=== PATIENT | female | born 1990 | race Caucasian/White ===

== ENCOUNTER → 2017-10-20 19:02 | Outpatient (CLI) | payer BC, SELFPAY ==
[2017-10-20 23:14] LABS: Chlamydia Trachomatis by PCR Negative (Negative); Neisserai gonorrhoeae by PCR Negative (Negative); Probe Check PASS; Sample Adequacy Control PASS; Specimen Processing Control PASS
[2017-10-26 11:48] LABS: HPV Reflexed? NOT INDICATED
== END ==
PROVIDERS: Visit Provider Obstetrics & Gynecology
DX: Z12.4 Encounter for screening for malignant neoplasm of cervix (principal); Z11.3 Encounter for screening for infections with a predominantly sexual mode of transmission
CPT/HCPCS: 87491; 87591; 88175; G0145

== ENCOUNTER → 2017-11-07 16:15 | Outpatient (CLI) | payer BC, SELFPAY ==
[2017-11-07 17:51] LABS: Color, Urine Yellow (Yellow); Glucose, Dipstick Normal (Normal); Ketone-Dipstick Negative (Negative); Leukocyte Esterase-Dipstick 500 /ul (Negative); Nitrite-Dipstick Negative (Negative); Occult Blood-Urine Negative /ul (Negative); Protein-Dipstick Negative (Negative); Specific Gravity, Urine 1.015 (1.002-1.030); Urine Bilirubin Dipstick Negative (Negative); Urine Clarity Clear (Clear); Urine Urobilinogen Normal (Normal)
[2017-11-07 18:06] LABS: Thyroid Stim Hormone (TSH) 1.51 uIU/mL (0.358-3.74)
[2017-11-07 18:07] LABS: Amphetamine Urine VISTA NEGATIVE (<1000 ng/mL); Barbiturate Urine VISTA NEGATIVE (< 200 ng/mL); Benzodiazepine Urine VISTA NEGATIVE (< 200 ng/mL); Cocaine Urine VISTA NEGATIVE (< 300 ng/mL); Ecstacy Urine VISTA NEGATIVE (< 500 ng/mL); Methadone Urine VISTA NEGATIVE (< 300 ng/mL); PCP Urine VISTA NEGATIVE (< 25 ng/mL); THC Urine VISTA NEGATIVE (< 50 ng/mL); Vista UDS pH Range 6
[2017-11-07 18:09] LABS: COTININE Drug Screen Negative (<200 ng/mL)
[2017-11-07 18:49] LABS: HIV - WCH Non-Reactive (Nonreactive); Rubella IgG 9.1 IU/mL
[2017-11-07 19:12] LABS: Absolute Lymphocyte Count 2.41 X10^3/ul (0.83-4.51); Absolute Neutrophil Count 10.4 X10^3/uL (2.0-7.7); Basophil# 0.01 X10^3/uL; Basophil% 0.1 % (0-1); Eosinophil# 0.08 X10^3/uL; Eosinophils% 0.6 % (0-5); Hematocrit 42.8 % (37-47); Lymphocyte # 2.41 X10^3/ul (4.0); Lymphocyte % 17.3 % (19-41); Mean Corp Hgb Conc 32.7 g/gl (32-36); Mean Corpuscular Volume 94.9 fL (81-99); Mean Platelet Vol. 10.1 fl (6.2-12.0); Monocyte# 1.02 X10^3/uL; Monocyte% 7.3 % (0-10); Neutrophil # 10.35 X10^3/uL (2.7-7.7); Neutrophil % 74.5 % (47-70); Platelet Count 297 K/mm3 (150-450); RBC Distribution Width CV 12.3 % (11.6-14.6); Red Blood Count 4.51 M/mm3 (4.2-5.4); White Blood Count 13.9 K/mm3 (4.4-11.0)
[2017-11-07 19:22] LABS: POSITIVE COUNT NO; POSITIVE DIFFERENTIAL NO; POSITIVE MORPHOLOGY NO
[2017-11-09 11:15] LABS: HEPATITIS B SURFACE AG Negative (Negative); Hep C Antibodies 0.1 s/co ratio (0.0-0.9)
[2017-11-11 03:45] LABS: Prenatal RPR NONREACTIVE (NONREACTIVE)
[2018-05-15 20:19] LABS: Group B Strep DNA By PCR Negative (Negative); Internal Control PASS; Probe Check PASS; Specimen Processing Control PASS
== END ==
PROVIDERS: Visit Provider Obstetrics & Gynecology
DX: Z34.81 Encounter for supervision of other normal pregnancy, first trimester (principal)
CPT/HCPCS: 36415; 80307; 81002; 84443; 85025; 86703; 86762; 86803; 86870; 86900; 86901; 87081; 87340; 87653

== ENCOUNTER → 2017-11-15 14:32 | Outpatient (CLI) | payer BC, SELFPAY | PROVIDERS: Visit Provider Obstetrics & Gynecology | DX: N39.0 Urinary tract infection, site not specified (principal) | CPT/HCPCS: 87086; 87088 ==

== ENCOUNTER → 2018-03-13 16:35 | Outpatient (CLI) | payer BC, SELFPAY ==
[2018-03-13 17:38] LABS: Hematocrit 37.4 % (37-47); Hemoglobin 12.2 g/dl (12.0-15.0); Mean Corp Hgb Conc 32.6 g/gl (32-36); Mean Corpuscular Hgb 31.8 pg (27.0-32.0); Mean Corpuscular Volume 97.4 fL (81-99); Mean Platelet Vol. 9.6 fl (6.2-12.0); Platelet Count 249 K/mm3 (150-450); RBC Distribution Width CV 12.8 % (11.6-14.6); Red Blood Count 3.84 M/mm3 (4.2-5.4); White Blood Count 14.5 K/mm3 (4.4-11.0)
[2018-03-13 17:44] LABS: Glucose Challenge Gest 1H 50g 107 mg/dL (70-140); Scan Indicated on CBC? Y/N NO
== END ==
PROVIDERS: Visit Provider Obstetrics & Gynecology
DX: Z34.83 Encounter for supervision of other normal pregnancy, third trimester (principal)
CPT/HCPCS: 36415; 82950; 85027; 86777; 86778

== ENCOUNTER → 2018-04-10 16:38 | Outpatient (CLI) | payer BC, SELFPAY | PROVIDERS: Visit Provider Obstetrics & Gynecology | DX: N39.0 Urinary tract infection, site not specified (principal) | CPT/HCPCS: 87086; 87088 ==

== ENCOUNTER → 2018-05-08 18:02 | Outpatient (CLI) | payer BC, SELFPAY ==
[2018-05-08 20:30] LABS: Group B Strep DNA By PCR Negative (Negative); Internal Control PASS; Probe Check PASS; Specimen Processing Control PASS
== END ==
PROVIDERS: Referring Provider Obstetrics & Gynecology; Visit Provider Obstetrics & Gynecology
DX: Z36.85 Encounter for antenatal screening for Streptococcus B (principal)
CPT/HCPCS: 87081; 87653

== ENCOUNTER → 2018-05-15 16:40 | Outpatient (CLI) | payer BC, SELFPAY | PROVIDERS: Visit Provider Obstetrics & Gynecology | DX: Z36.85 Encounter for antenatal screening for Streptococcus B (principal) ==

== ENCOUNTER 2018-06-04 08:00 | Inpatient (IN) | payer BC, SELFPAY ==
[2018-06-04] MEDS: Lactated Ringers 1,000 ML 50 ML IV ×4 (08:15→16:41)
[2018-06-04 08:19] VITALS: BMI 35.4
[2018-06-04 08:45] LABS: Hematocrit 37.1 % (37-47); Hemoglobin 12.1 g/dl (12.0-15.0); Mean Corp Hgb Conc 32.6 g/gl (32-36); Mean Corpuscular Hgb 31.8 pg (27.0-32.0); Mean Corpuscular Volume 97.4 fL (81-99); Mean Platelet Vol. 9.5 fl (6.2-12.0); Platelet Count 239 K/mm3 (150-450); RBC Distribution Width CV 13.4 % (11.6-14.6); RBC Distribution Width SD 45.4 fl (35.1-43.9); Red Blood Count 3.81 M/mm3 (4.2-5.4); White Blood Count 11.9 K/mm3 (4.4-11.0)
[2018-06-04 08:47] LABS: Scan Indicated on CBC? Y/N NO
[2018-06-04] MEDS: fentaNYL-bupivacaine (epidural) 100 ML BAG EPIDURAL ×2 (09:36→14:11)
--- NOTE | 2018-06-04 10:36 | PCM.PN.BLA ---
Progress Note 39 2/7 wk Labor Comfortable after epidural placement. AVSS No pitocin at this point UCs q 5-6 min for most EFM 120-130s avg variability accels. Periods of intermittent tracing CX: /-3 vtx applied to cervix. AROM clear. to pink IUPC and scalp lead placed. A/P: 39 2/7 wk EGA. early labor. IUPC and scalp lead placed. Suspect UCs inadequate. no change since admission in cervix and vtx remains high. Pitocin per protocol to adequate mVUs.
[2018-06-04] MEDS: Oxytocin 30 units/NS 500 ml 30 UNITS/500 ML IV.SOLN IV (11:33)
--- NOTE | 2018-06-04 13:22 | PCM.PN.BLA ---
Progress Note LABOR PROGRESS NOTE Comfortable w/ epidural. Family in visiting. AVSS Pitocin at 6 mIU/min IFM: 120-130s avg variability. Accels Occasional variable with return to baseline Occasional early deceleration UCs coupling and spacing noted. CX Vtx very high/ 6 (maybe 6-7) 80 A/P: 39 2/7 wk EGA labor. AROM and IUPC placed. Pitocin augmentation. Advised will continue position changes and continue Pitocin per protocol. Suspect CPD, but will continue labor for now.
--- NOTE | 2018-06-04 17:34 | PCM.PN.BLA ---
Progress Note LABOR PROGRESS NOTE Sitting up in high kuo's position. NAD comfortable w/ epidural AVSS Pitocin at 2 mIU/min IFM overall reassuring. 120s with good scalp stim. Decel lasting 5 min today with intermittent accel/scalp stim. Avg variability. Deep variables off and on, positional. Some earlies UCs q 3-4 at present CX: 9/100 / 0 per RN check. A/P: 39 2/7 wk progress to 9 cm noted. Position changes to facilitate descent Continue labor
[2018-06-04] MEDS: Oxytocin 30 units/NS 500 ml 30 UNITS/500 ML IV.SOLN 334 UNITS IV (19:08)
--- NOTE | 2018-06-04 19:28 | PCM.OB.VAG ---
Vaginal Delivery Maternal Presentation: Active Labor 39 2/7 wk labor. Amniotic Membrane Rupture Type: Artificial Amniotic Fluid Description: Clear - mec staining noted then with progression of labor. Final URIEL: 06/09/18 Final URIEL Source: [place] <20 weeks Gestational age: 39 Weeks and 2 Days Date of Procedure: 06/04/18 Pre-Operative Diagnosis: 39 2/7 wk Post-Operative Diagnosis: same Surgery/ Procedure Performed: Spontaneous Vaginal Delivery Anesthesiologist: Norma Ledezma Type of Anesthesia: Epidural Description of Procedure: of a prasad viable female over intact perineum to lacerations. head delivered JOHN. Nuchal cord x one reduced. shoulders delivered easily. baby initially with good grimace and tone. Bulb suctioned and then limp. Cord clamped x two and cut and to be handed to customer service specialist, Dr Lira, present for delivery. Baby then crying vigorously as nurse took baby. Infant to maternal abdomen for drying. End stage mec noted. Routine ABG and VBG collected. PP exam; 1st deg anterior perineal laceration on L side, hemostatic. posterior vaginal laceration, 2nd deg, repaired to hemostatic and intact with 3-0 Vicryl. No other lacerations noted. Placenta delivered by spont expulsion, expression 3V cord normal appearing, thin cord. Intact with trailing membranes EBL 350 cc pt and tolerated delivery well. to recovery , stable condition. Ray Lopez counts correct x two Presentation: Vertex, JOHN Placental Delivery Description: Spontaneous, Expressed Placenta Disposition: [facility] Cord Vessel Description: 3 Vessels Nuchal Cord Compression: Without compression Cord Entanglement: Around neck x 1, loose Estimated Blood Loss: 350 Infant A gender: Female (1 minute): 8 (5 minute): 9 Episiotomy Description: None Laceration: Midline, Vaginal Extension/lac, 2nd degree - and L anterior labial laceration (hemostatic) 2nd deg repaired. Medications given after delivery: IV Pitocin Complications: None
--- NOTE | 2018-06-04 19:33 | OP.PCM_ITS ---
Vaginal Delivery Maternal Presentation: Active Labor 39 2/7 wk labor. Amniotic Membrane Rupture Type: Artificial Amniotic Fluid Description: Clear - mec staining noted then with progression of labor. Final URIEL: 06/09/18 Final UREIL Source: US <20 weeks Gestational age: 39 Weeks and 2 Days Date of Procedure: 06/04/18 Pre-Operative Diagnosis: 39 2/7 wk Post-Operative Diagnosis: same Surgery/ Procedure Performed: Spontaneous Vaginal Delivery Anesthesiologist: Norma Ledezma Type of Anesthesia: Epidural Description of Procedure: of a prasad viable female over intact perineum to lacerations. head delivered JOHN. Nuchal cord x one reduced. shoulders delivered easily. baby initially with good grimace and tone. Bulb suctioned and then limp. Cord clamped x two and cut and to be handed to plug making operator, Dr Lira, present for delivery. Baby then crying vigorously as nurse took baby. Infant to maternal abdomen for drying. End stage mec noted. Routine ABG and VBG collected. PP exam; 1st deg anterior perineal laceration on L side, hemostatic. posterior vaginal laceration, 2nd deg, repaired to hemostatic and intact with 3- 0 Vicryl. No other lacerations noted. Placenta delivered by spont expulsion, expression 3V cord normal appearing, thin cord. Intact with trailing membranes EBL 350 cc pt and tolerated delivery well. to recovery , stable condition. Ray Lopez counts correct x two Presentation: Vertex, JOHN Placental Delivery Description: Spontaneous, Expressed Placenta Disposition: [facility] Cord Vessel Description: 3 Vessels Nuchal Cord Compression: Without compression Cord Entanglement: Around neck x 1, loose Estimated Blood Loss: 350 A gender: Female (1 minute): 8 (5 minute): 9 Episiotomy Description: None Laceration: Midline, Vaginal Extension/lac, 2nd degree - and L anterior labial laceration (hemostatic) 2nd deg repaired. Medications given after delivery: IV Pitocin Complications: None
--- NOTE | 2018-06-04 19:37 | PCM.DCVAG ---
Discharge Diet: No Restrictions Discharge Activity: May Shower, May Take a Tub Bath May resume sexual activity in: 4-6 weeks Additional Activity Instructions:: Nothing in the vagina for 4-6 weeks. You may return to work/school in 6 weeks. Additional Instructions: If you experience any of the following, contact your healthcare provider. Bleeding that soaks a pad every hour for 2 hours Fever 100.4 or higher Unrelieved abdominal pain Problems urinating (including inability to urinate or burning while urinating). Visual changes Severe headache Flu-like symptoms Pain or redness in one of both of your breasts Pain, warmth, tenderness or swelling in your legs, especially the calf area Frequent nausea and vomiting Symptoms of depression or anxiety If you experience any of the following, call 911 or go to the nearest Emergency Room. Chest pain Problems breathing Seizure activity Partial or complete paralysis of a body part, slurred speech, weakness or drooping of the face, or a sudden inability to walk or hold your balance Allergies/Adverse Reactions: Allergies No Known Allergies Allergy (Verified 06/04/18 08:19) Medications to take at Discharge Vits [Prenatabs FA] 1 tablet PO DAILY 06/04/18 Please Follow Up With: Denise Israel MD - [phone] When: Call to make an appointment with your doctor in 6 weeks. Test Results: Test results from this visit will be discussed in further detail at your follow-up appointment, if applicable. Proposed Discharge Date: 06/06/18
[2018-06-04] MEDS: Oxytocin 30 units/NS 500 ml 30 UNITS/500 ML IV.SOLN 167 UNITS IV (19:38)
--- NOTE | 2018-06-04 19:38 | DCINST_ITS ---
Discharge Diet: No Restrictions Discharge Activity: May Shower, May Take a Tub Bath May resume sexual activity in: 4-6 weeks Additional Activity Instructions:: Nothing in the vagina for 4-6 weeks. You may return to work/school in 6 weeks. Additional Instructions: If you experience any of the following, contact your healthcare provider. * Bleeding that soaks a pad every hour for 2 hours * Fever 100.4 or higher * Unrelieved abdominal pain * Problems urinating (including inability to urinate or burning while urinating). * Visual changes * Severe headache * Flu-like symptoms * Pain or redness in one of both of your breasts * Pain, warmth, tenderness or swelling in your legs, especially the calf area * Frequent nausea and vomiting * Symptoms of depression or anxiety If you experience any of the following, call 911 or go to the nearest Emergency Room. * Chest pain * Problems breathing * Seizure activity * Partial or complete paralysis of a body part, slurred speech, weakness or drooping of the face, or a sudden inability to walk or hold your balance Allergies/Adverse Reactions: Allergies No Known Allergies Allergy (Verified 06/04/18 08:19) Medications to take at Discharge Vits [Prenatabs FA] 1 tablet PO DAILY 06/04/18 Please Follow Up With: Denise Israel MD - [phone] When: Call to make an appointment with your doctor in 6 weeks. Test Results: Test results from this visit will be discussed in further detail at your follow- up appointment, if applicable. Proposed Discharge Date: 06/06/18
[2018-06-05] VITALS: BP 96/59; PULSE 68; RESP 18; TEMP 36.3
[2018-06-05] MEDS: Naproxen 250 MG Tablet PO ×2 (00:49→09:13)
[2018-06-05] MEDS: Acetaminophen 500 MG Tablet 1000 MG PO (03:45)
[2018-06-05 03:50] VITALS: BP 91/51; PULSE 70; RESP 16; TEMP 36.2; O2SAT 98
--- NOTE | 2018-06-05 07:39 | PCM.PN.OB ---
Subjective: PPD#1 Doing well. No concerns voiced, but trying to nurse. Has been spoon feeding also. Minimal pain. Pain med prn. - Physical Exam General: Alert, Oriented x3, Cooperative, No apparent distress HEENT: Atraumatic Neck: Supple Abdomen: Soft - Fundus firm NT at umbilicus Neurological: Cranial nerves II-XII grossly intact Psych/Mental Status: Normal Affect Vital Signs Temp Pulse Resp BP Pulse Ox 97.2 F L 70 16 91/51 L 98 06/05/18 03:50 06/05/18 03:50 06/05/18 03:50 06/05/18 03:50 06/05/18 03:50 Oxygen Delivery Method Room Air Weight: 84.9 kg Body Mass Index (BMI) 35.4 Intake and Output for Last 24 Hours 06/04/18 06/04/18 06/05/18 00:59 23:59 23:59 Intake Total Output Total 450 / 450 Balance -450 / -450 Laboratory Tests Past 24 Hrs 06/04/18 06/04/18 06/04/18 08:15 08:15 08:15 WBC 11.9 H RBC 3.81 L Hgb 12.1 Hct 37.1 MCV 97.4 MCH 31.8 MCHC 32.6 RDW 13.4 RDW Differential 45.4 H Plt Count 239 MPV 9.5 Blood Type AB POSITIVE Antibody Screen POSITIVE H Antibody Identification ANTI-M Antigen Identification M ANTIGEN - NEGATIVE Medical Necessity - Tobacco Use Smoking Status: Never smoker Assessment/Plan PPD#1 Stable . Discontinue S/L. continue routine pp care
[2018-06-05 08:58] VITALS: BP 97/48; PULSE 72; RESP 16; TEMP 36.2
[2018-06-05] MEDS: Prenatal Vits Tablet 1 TABLET PO (09:13)
[2018-06-05 12:10] VITALS: BP 90/41; PULSE 72; RESP 16; TEMP 36.5
[2018-06-05 16:30] VITALS: BP 107/63; PULSE 75; RESP 16; TEMP 36.3
[2018-06-05 20:15] VITALS: BP 112/58; PULSE 80; RESP 18; TEMP 36.3
[2018-06-06 02:10] VITALS: BP 96/44; PULSE 78; RESP 16; TEMP 36.3; O2SAT 97
--- NOTE | 2018-06-06 07:46 | PCM.PN.OB ---
Subjective: PPD#2 vaginal delivery Doing OK. Family in town now and good support for immediate help. Trying to breast feed. States difficult and milk not in yet. some discomfort at perineum, sides of abdomen (from pushing) - Physical Exam General: Alert, Oriented x3, Cooperative, No apparent distress HEENT: Atraumatic Neck: Supple Abdomen: Soft - Fundus firm NT 2 cm inferior to umbilicus Neurological: Cranial nerves II-XII grossly intact Psych/Mental Status: Normal Affect Vital Signs Temp Pulse Resp BP Pulse Ox 97.3 F L 78 16 96/44 L 97 06/06/18 02:10 06/06/18 02:10 06/06/18 02:10 06/06/18 02:10 06/06/18 02:10 Oxygen Delivery Method Room Air Weight: 84.9 kg Body Mass Index (BMI) 35.4 Intake and Output for Last 24 Hours 06/04/18 06/05/18 06/06/18 23:59 23:59 23:59 Intake Total Output Total 650 / 650 Balance -650 / -650 Medical Necessity - Tobacco Use Smoking Status: Never smoker Assessment/Plan PPD#2 Stable . Dischg home today.
[2018-06-06 09:10] VITALS: BP 110/64; PULSE 76; RESP 14; TEMP 36.6; O2SAT 96
[2018-06-06] MEDS: Prenatal Vits Tablet 1 TABLET PO (09:17)
[2018-06-06 13:29] VITALS: BP 109/62; PULSE 89; RESP 16; TEMP 36.6; O2SAT 95
== END 2018-06-06 14:55 | disposition home or self-care (01) | DRG 807 ==
PROVIDERS: Admitting Provider Obstetrics & Gynecology; Family Provider Internal Medicine; PCP Internal Medicine; Referring Provider Obstetrics & Gynecology; Visit Provider Obstetrics & Gynecology
DX: O69.81X0 Labor and delivery complicated by cord around neck, without compression, not applicable or unspecified (principal); Z37.0 Single live birth; Z3A.39 39 weeks gestation of pregnancy; O70.1 Second degree perineal laceration during delivery
CPT/HCPCS: 59025; 59050; 85027; 86850; 86870; 86900; 86905; 99218; J7120; G0378

== ENCOUNTER 2018-06-08 14:05 | Outpatient (CLI) | payer BC, SELFPAY | END 2018-06-08 15:20 | disposition home or self-care (01) | LOC: WPOUT 14:08 → WP 14:09 | PROVIDERS: Family Provider Internal Medicine; PCP Internal Medicine; Referring Provider Obstetrics & Gynecology; Visit Provider Obstetrics & Gynecology | DX: Z39.1 Encounter for care and examination of lactating mother (principal) | CPT/HCPCS: 96152 ==